=== PATIENT | male | born 1955 | race Caucasian/White ===

== ENCOUNTER → 2021-08-31 09:27 | Outpatient (CLI) | payer OTHER, SELFPAY ==
[2021-08-31 10:28] LABS: Appearance Urine UA CLEAR; Bilirubin Urine UA NEGATIVE (NEGATIVE); Color Urine UA YELLOW; Glucose Urine UA NEGATIVE (Negative); Ketones Urine UA NEGATIVE (NEGATIVE); Leukocyte Esterase Urine UA NEGATIVE (NEGATIVE); Nitrite Urine UA NEGATIVE (Negative); Occult Blood Urine UA NEGATIVE (Negative); Protein Urine UA NEGATIVE (Negative); Specific Gravity Urine UA <=1.005 (1.000-1.035); Urobilinogen Urine UA 0.2 E.U./dL (0.2)
[2021-08-31 10:38] LABS: RBC Urine 0-1/HPF (0-5/HPF); WBC Urine None Seen (0-5/HPF)
[2021-08-31 10:39] LABS: Bacteria Urine Occasional (0-1); Culture Indicated Urine Cult Not Indicated
[2021-08-31 11:29] LABS: Add Manual Diff / Slide Review NO; Basophils Absolute Auto 100 /uL (0-100); Basophils Percent Auto 0.5 % (0-2); Eosinophils Absolute Auto 200 /uL (0-450); Eosinophils Percent Auto 1.2 % (2-4); Hematocrit 43.3 % (41-53); Hemoglobin 14.8 g/dL (13.5-17.5); Lymphocytes Absolute Auto 2800 /uL (1100-4500); Lymphocytes Percent Auto 22.9 % (25-40); Mean Corpuscular HGB Conc 34.3 % (30-36); Mean Corpuscular Hemoglobin 33.1 PG (26-34); Mean Corpuscular Volume 96.6 fL (80-100); Monocytes Absolute Auto 1000 /uL (0-900); Neutrophils Absolute Auto 8200 /uL (1500-7000); Neutrophils Percent Auto 67.4 % (50-75); Platelet Count 195 X10^3/uL (150-400); Red Blood Cell Count 4.48 X10^6/uL (4.5-5.9); White Blood Cell Count 12.2 X10^3/uL (4.5-11.0)
[2021-08-31 11:45] LABS: BUN Creatinine Ratio 14.5 (6-22); Blood Urea Nitrogen 16 mg/dL (9-20); Calcium 9.7 mg/dL (8.4-10.2); Carbon Dioxide 28 mmol/L (22-32); Chloride 105 mmol/L (98-107); Estimated Glomerular Filt Rate > 60.0 mL/min (>60); Glucose 105 mg/dL (80-110); HEMOLYSIS < 15 (0-50); Potassium 4.7 mmol/L (3.4-5.1); Sodium 141 mmol/L (137-145)
[2021-08-31 11:46] LABS: Hemoglobin A1C% w Est Avg Glu 6.6 % (4.0-6.0)
== END ==
PROVIDERS: PCP Family Medicine; Referring Provider Orthopaedic Surgery; Visit Provider Orthopaedic Surgery
DX: Z01.818 Encounter for other preprocedural examination (principal); Z01.812 Encounter for preprocedural laboratory examination; N39.0 Urinary tract infection, site not specified; R73.9 Hyperglycemia, unspecified; Z20.822 Contact with and (suspected) exposure to COVID-19
CPT/HCPCS: 36415; 80048; 81001; 83036; 85025; 87635; 93005; C9803

== ENCOUNTER → 2021-08-31 09:27 | Outpatient (CLI) | payer OTHER, SELFPAY ==
[2021-08-31 10:45] LABS: COVID19 -Nasal RAPID Negative (Negative)
== END ==
PROVIDERS: PCP Family Medicine; Visit Provider Surgery
DX: Z01.812 Encounter for preprocedural laboratory examination (principal); Z20.822 Contact with and (suspected) exposure to COVID-19
CPT/HCPCS: 87635

== ENCOUNTER 2021-09-01 07:02 | Day surgery (SDC) | payer OTHER, SELFPAY ==
--- NOTE | 2021-09-01 | PATH_ITS ---
[facility] Accession Number: [id number] . 01 Material submitted: . PART A: stomach - ANTRUM BIOPSIES PART B: duodenum - DUODENAL BIOPSIES PART C: stomach - PROXIMAL STOMACH LESION . 02 Diagnosis: A. Stomach, Antrum, Biopsies: Antral mucosa with mild chronic gastritis. Negative for Helicobacter organisms by immunohistochemistry. Negative for intestinal metaplasia. Negative for dysplasia and malignancy. . B. Duodenum, Biopsies: Duodenal mucosa with no diagnostic abnormality. Negative for active inflammation, features of sprue, dysplasia, or malignancy. . C. Stomach, Proximal Lesion, Biopsies: Fragments suggestive of gastric hyperplastic polyp. Body-type mucosa with mild chronic gastritis. Negative for Helicobacter organisms by immunohistochemistry. Negative for intestinal metaplasia. Negative for dysplasia and malignancy. MRV 09/07/2021 1207 Local . 02 Electronically signed: . Jennifer Foster MD, Pathologist NPI- [id number] . 01 Gross description: . Part A: ANTRUM BIOPSIES: Received in formalin are 3 fragment(s) of son, soft tissue measuring 0.4 x 0.2 x 0.1 cm to 0.3 x 0.1 x 0.1 cm submitted entirely in 1 cassette(s) Part B: DUODENAL BIOPSIES: Received in formalin are 2 fragment(s) of son, soft tissue measuring 0.3 x 0.1 x 0.1 cm to 0.2 x 0.1 x 0.1 cm submitted entirely in 1 cassette(s) Part C: PROXIMAL STOMACH LESION: Received in formalin are 4 fragment(s) of son, soft tissue measuring 0.3 x 0.2 x 0.2 cm to 0.2 x 0.2 x 0.1 cm submitted entirely in 1 cassette(s) /CPE 09/02/2021 0527 Local . 02 Microscopic: . A, C. Immunohistochemical stains were performed on blocks A and C in order to evaluate for Helicobacter organisms and are both negative. The control stain showed appropriate reactivity. . * This test was developed and its performance characteristics determined by [facility]. It has not been cleared or approved by the U.S. Food and Drug Administration. The FDA has determined that such clearance or approval is not necessary. This test is used for clinical purposes. It should not be regarded as investigational or for research. . 02 Pathologist provided ICD-10: R10.9 . 02 CPT . 731710, 898117, 860389, [id number] Specimen Comment: A courtesy copy of this report has been sent to [phone] Performed at: 01 [facility] [address] [id number] MD Luis Monge MD Phone: [phone] Performed at: 02 [facility] [address] [place], [place] [id number] MD Jennifer Foster MD Phone: [phone]
[2021-09-01 07:35] VITALS: BP 132/74; PULSE 91; RESP 16; TEMP 36.4; O2SAT 98; BMI 25.7
[2021-09-01] MEDS: LACTATED RINGERS 1,000 ML 42 ML IV (07:44)
--- NOTE | 2021-09-01 08:29 | PM.HP.1 ---
History of Present Illness History of Present Illness Date Patient Seen: 09/01/21 Time Patient Seen: 08:29 Chief complaint: SDC Narrative: Mansoor is here for his EGD. Please see the office note from July 13, 2021 for details. Patient History Medical History Benign prostatic hyperplasia (~2014) CAD (coronary artery disease) Chicken pox Cholecystitis Chronic left hip pain COPD (chronic obstructive pulmonary disease) (~2017) Diabetes mellitus Osteoarthritis (~2014) Surgical History Anesthesia History of tonsillectomy (~1964) History of vasectomy (~1989) Family & Social History Family History Father History of heart disease Hyperlipidemia Hypertension Mother Mental health problem Brother History of heart disease Hyperlipidemia Hypertension Social History: household members spouse Tobacco & Substance use: Smoking Status Current every day smoker alcohol intake current Substance Use Type does not use Meds Home Medications and Allergies Home Medications Medication Instructions Recorded Confirmed Type omeprazole 40 mg capsule,delayed 40 mg PO DAILY #90 cap 07/15/21 09/01/21 Rx release semaglutide 1 mg/dose (2 mg/1.5 1 mg (0.75 mL) SUBCUT QWEEK #3 ml 07/15/21 09/01/21 Rx mL) subcutaneous pen injector simvastatin 10 mg tablet 10 mg PO DAILY #90 tab 07/15/21 09/01/21 Rx tamsulosin 0.4 mg capsule 0.8 mg PO DAILY #180 cap 07/15/21 09/01/21 Rx Allergies Allergy/AdvReac Type Severity Reaction Status Date / Time azithromycin Allergy Intermediate GI issues Verified 07/15/21 15:40 erythromycin base Allergy Intermediate GI issues Verified 07/15/21 15:40 Penicillins Allergy Mild unknown Verified 07/15/21 15:40 Exam Vital Signs (past 8 hours): - 09/01/21 07:35 Temperature 97.5 F L Pulse Rate 91 H Respiratory Rate 16 Blood Pressure 132/74 Pulse Oximetry 98 Oxygen Delivery Method Room Air Const General: healthy appearing Resp Effort & Inspection: normal respiratory effort GI Palpation: soft Assessment & Plan Assessment and plan (1) Dyspepsia: Status: Acute Plan Mansoor is here for his EGD. We reviewed the procedure and the risks and he would like to proceed. COVID-19 COVID-19 status: Negative Result date/Date tested (Pos, Neg/Pending): 08/31/21 Time Spent With Patient Critical Care time: I spent a total of [] minutes of critical care time on this patient's care today; this time is exclusive of procedural time.
[2021-09-01] MEDS: LIDOCAINE 4% SOLN 50 ML 20 ML TOP (08:33)
[2021-09-01] MEDS: MIDAZOLAM 5 MG/5 ML VIAL IV (08:34)
--- NOTE | 2021-09-01 08:50 | PM.OP.EGD ---
Operative Date/Time/Diagnoses Date of procedure: 09/01/21 Time of procedure: 08:51 Pre-op diagnosis: Dyspepsia Post-op diagnosis: same Procedure & Clinicians Study performed: Esophagogastroduodenoscopy Surgeon: Juan Green Procedure Notes Procedure in detail: A timeout was performed. A bite blocked was placed. The patient was positioned in the left lateral decubitus position. The endoscope was inserted through the bite block and passed through the esophagus and stomach and into the duodenum. The duodenal mucosa appeared normal. Random biopsies were taken with cold forceps from the duodenum. The scope was withdrawn into the duodenal bulb and no abnormality was noted. The scope was withdrawn into the stomach. There is mild antritis and random biopsies were taken from the antrum using cold forceps. The rest of the stomach was normal. The scope was retroflexed and small polypoid lesion was noted in the proximal stomach just distal to the GE junction, possibly a fundic gland polyp. This was removed with cold forceps biopsies. The scope was withdrawn into the esophagus and no abnormalities were noted. The remainder of the esophagus was normal. The scope was withdrawn. The patient was awakened and brought to recovery. Sedation minutes: 15 Post-procedure Recommendations: Will call with biopsy results Disposition: PACU
[2021-09-01] MEDS: fentaNYL 250 MCG/5 ML INJ IV (08:51)
[2021-09-01 08:58] VITALS: BP 104/65; PULSE 71; RESP 15; TEMP 36; O2SAT 97
[2021-09-01 09:15] VITALS: BP 99/60; PULSE 73; RESP 15; O2SAT 97
[2021-09-01 09:17] VITALS: BP 99/60; PULSE 69; RESP 15; O2SAT 97
--- NOTE | 2021-09-01 09:19 | SUR.PHASEII ---
Discharge instructions reviewed with pt and he verbalized understanding.
== END 2021-09-01 10:00 | disposition home or self-care (01) ==
PROVIDERS: PCP Family Medicine; Referring Provider Surgery; Visit Provider Surgery
PROC: 0DJ08ZZ Inspection of Upper Intestinal Tract, Via Natural or Artificial Opening Endoscopic (ICD-10-PCS; CPT 43235; principal; 2021-09-01 08:15)
DX: R10.13 Epigastric pain (principal); J44.9 Chronic obstructive pulmonary disease, unspecified; E11.9 Type 2 diabetes mellitus without complications; Z79.84 Long term (current) use of oral hypoglycemic drugs; F17.210 Nicotine dependence, cigarettes, uncomplicated; K29.50 Unspecified chronic gastritis without bleeding; K31.7 Polyp of stomach and duodenum
CPT/HCPCS: 43239; 99152; J2250; J3010

== ENCOUNTER → 2021-10-05 13:59 | Outpatient (CLI) | payer OTHER, SELFPAY ==
[2021-10-05 15:43] LABS: COVID19 -Nasal RAPID Negative (Negative)
== END ==
PROVIDERS: PCP Family Medicine; Visit Provider Family Medicine Sleep Medicine
DX: Z20.822 Contact with and (suspected) exposure to COVID-19 (principal)
CPT/HCPCS: 87635; C9803

== ENCOUNTER → 2021-10-06 07:37 | Outpatient (CLI) | payer OTHER, SELFPAY ==
--- NOTE | 2021-10-06 | DI.NM.S_ITS ---
PROCEDURE: NM CONCHIS PERF SPECT REST & STR Rest and exercise myocardial perfusion SPECT with gated imaging and ejection fraction RADIOPHARMACEUTICAL: 10.3 mCi Tc-99m sestamibi IV at rest and 25.4 mCi Tc-99m sestamibi IV at peak exercise. A one day-protocol was performed. INDICATIONS: Atherosclerotic heart disease TECHNIQUE: Radiopharmaceutical was injected at peak stress test, and also at rest. SPECT images were obtained. SPECT myocardial perfusion images were displayed in short axis, horizontal long axis, and vertical long axis views. Gated images were reviewed using Biocartis software. COMPARISON: None. CARDIAC STRESS: A standard Jordi treadmill exercise tolerance test was performed by the patient under the supervision of an attending staff. The patient exercised for 6 minutes and 30 seconds; functional aerobic impairment (PROSPER) is -6%. Hemodynamic data: There is normal blood pressure and heart rate response to exercise stress. Patient achieved 76% of maximum predicted heart rate at peak exercise. Symptoms: Patient denied chest pain during exercise. EKG: No diagnostic EKG changes of ischemia; no ectopy. FINDINGS: Raw data: There is good myocardial labeling by radiotracer. No significant motion artifacts. Jewz-at-ztpwi ratio is 0.26 (normal is less than 0.38 for sestamibi tracer, and less than 0.50 for thallium tracer). Left ventricle function: Gated images demonstrate normal left ventricle wall thickening. No segmental wall motion abnormality. No transient ischemic dilation; TID is 0.94 (normal less than 1.3). The left ventricle resting end-diastolic volume is 104 mL. Left ventricle stress ejection fraction is 76%; normal values are above 45%. Myocardial perfusion: No defect on stress prone images. IMPRESSION: Low risk, normal treadmill nuclear stress test 1) No perfusion evidence of ischemia or infarction. 2) Normal left ventricular size, wall motion, and systolic function (EF post stress 76%). 3) No ECG evidence of ischemia or infarction. 4) No angina during the study. 5) Average exercise capacity (9.1 METs, PROSPER -6%). Target heart rate achieved. Appropriate BP response to exercise. 6) No prior nuclear stress test available for comparison. Dictated by: Kiko Garnett MD on 10/06/2021 at 16:25 Approved by: Kiko Garnett MD on 10/06/2021 at 16:28
--- NOTE | 2021-10-06 11:49 | PM.TREADMILL ---
Cardiac Stress Test Report Referral & Results Date Patient Seen: 10/06/21 Time Patient Seen: 11:50 Requesting provider: Kiko Garnett Indication: Atherosclerotic heart disease Rest ECG: Sinus rhythm Procedure Note: Standard Jordi protocol, 8:19 mins, 9.1 METS Good exercise capacity, PROSPER -6% Normal hemodynamic response to exercise; hypertensive at baseline No chest pain or anginal symptoms No significant ST changes at peak exercise No ectopy Test stopped due to right leg pain Impression: Normal exercise stress test Nuclear images pending Please note: Actual ECG tracings can be found in the PACS system.
== END ==
PROVIDERS: PCP Family Medicine; Referring Provider Internal Medicine Cardiovascular Disease; Visit Provider Internal Medicine Cardiovascular Disease
DX: I25.10 Atherosclerotic heart disease of native coronary artery without angina pectoris (principal)
CPT/HCPCS: 78452; 93017; A9502

== ENCOUNTER → 2021-10-10 13:14 | Outpatient (CLI) | payer OTHER, SELFPAY ==
[2021-10-10 17:16] LABS: COVID19 -Nasal RAPID Negative (Negative)
== END ==
PROVIDERS: PCP Family Medicine; Visit Provider Family Medicine Sleep Medicine
DX: Z20.822 Contact with and (suspected) exposure to COVID-19 (principal)
CPT/HCPCS: 87635; C9803

== ENCOUNTER 2021-10-11 06:04 | Day surgery (SDC) | payer OTHER, SELFPAY ==
[2021-10-03 14:50] VITALS: BMI 26.2
[2021-10-11] VITALS (15 sets, daily range): BP systolic 82–131; BP diastolic 36–75; PULSE 72–87; RESP 14–20; TEMP 36.3–37.4; O2SAT 90–99; BMI 26.2
--- NOTE | 2021-10-11 06:34 | DI.RAD.S_ITS ---
PROCEDURE: XR HIP W PEL IF DONE LT 2V INDICATIONS: prosthesis placement TECHNIQUE: 4 intraoperative spot view(s) of the hip acquired. COMPARISON: None. FINDINGS: Multiple intraoperative images demonstrate placement of a left hip arthroplasty device. IMPRESSION: Intraoperative imaging obtained during left hip arthroplasty procedure. Dictated by: Ale Swann M.D. on 10/11/2021 at 11:19 Approved by: Ale Swann M.D. on 10/11/2021 at 11:20
[2021-10-11] MEDS: LACTATED RINGERS 1,000 ML 42 ML IV ×2 (07:03→09:22)
[2021-10-11] MEDS: VANCOMYCIN 1,000 MG/200 ML PIGGYBACK 200 MG IV (07:10)
[2021-10-11] MEDS: ACETAMINOPHEN 325 MG TABLET 975 MG PO (07:17)
[2021-10-11] MEDS: CELECOXIB 200 MG CAPSULE PO (07:18)
[2021-10-11] MEDS: PREGABALIN 75 MG CAPSULE PO (07:19)
--- NOTE | 2021-10-11 07:38 | PM.PREOP ---
Pre-operative Note COVID-19 COVID-19 status: Negative Interval Note History & Physical reviewed/Exam performed by Physician: Yes Changes to H&P: No
--- NOTE | 2021-10-11 07:39 | PM.OP.1 ---
Operative Date/Time/Diagnoses Date of procedure: 10/11/21 Time of procedure: 08:00 Pre-op diagnosis: left hip OA Post-op diagnosis: same Procedure & Clinicians Procedure: Left total hip arthroplasty anterior approach Same procedure as scheduled: Yes Indications: The patient has had progressively worsening left hip pain with radiographic changes consistent with arthritis. Non-operative management has failed and the patient has requested total hip replacement. The risks, benefits and alternatives to surgery were discussed with the patient prior to proceeding. Risks discussed included, but were not limited to, failure to relieve pain, leg length discrepancy, dislocation, stiffness, infection, nerve damage, deep venous thrombosis, pulmonary embolism, stroke, coma, heart attack, permanent paralysis and , as well as the potential need for eventual revision of the prosthetic. Surgeon: Ryann Ceja Vp Cardiovascular Service Line: Tram Knight Anesthesia Type: General and Spinal Operative Notes Findings: Severe left hip osteoarthritis, adequate stability, good bone Closure Type: primary Specimen(s): none sent Prosthetic devices, grafts, tissues, transplants, or devices: Ceja [employer] Nephew R3 56 cup, anthology standard offset, size 12, Oxinium +4, neutral poly liner, one 6.5mm screw Estimated Blood Loss (mL): 250 Blood products transfused: none Procedure in detail: The patient was brought to the operating room. Patient was carefully positioned in the supine position. Time-out was performed and antibiotics were given. Anesthesia was induced. He was positioned in the on the table in order to allow hyperextension of the hip. The left lower extremity was prepped and draped in a standard sterile fashion. An anterior left hip incision was made 1 fingerbreadth lateral to the anterior superior iliac spine and extended distally towards the greater trochanter. Dissection was carried out through skin and subcutaneous tissues. Superficial hemostasis was achieved. The fascia over the tensor fascia destin was defined and incised with a knife. Two Allis clamps were used to grasp the fascia. Tensor fascia destin was retracted laterally. A gelpi retractor was placed. Dissection was carried out down along the neck. The circumflex vessels were carefully identified and cauterized with the Aqua Mantis. There was good visualization of the femoral neck. A Cobra was placed superior to the neck and the gluteus fibers were carefully stripped from that superior aspect of the capsule. A 2nd retractor was placed along the inferior aspect of the neck. The rectus insertion along the capsule was partially released. A 3rd retractor that was then gently placed over the rim of the acetabulum under the rectus. Capsule was carefully incised and released from the intertrochanteric line circumferentially superior to the mid sagittal line and inferiorly to the mid sagittal line until the lesser trochanter was palpable. A tag stitch was placed both in the superior and inferior limb of the capsular insertion. Along the acetabulum capsule was also released up to the mid sagittal 12:00 position. A portion of the labrum was resected. A saw was used to perform an osteotomy at the level of the intertrochanteric line and the junction of the superior femoral neck leaving approximately 1 finger breath of residual inferior neck above the lesser trochanter. A 2nd cut was made along the femoral neck at the base of the head and a napkin ring of neck was removed. Corkscrew was placed in the femoral head and the head was removed without difficulty. Retractors were then repositioned around the acetabulum. Residual labrum was resected and additional osteophytes were removed. A reamer that was 4 mm below the templated size was placed by hand in the acetabulum and it was reamed to centralize the acetabulum. It was then reamed up to 2 under the templated size and fluoroscopy was brought in to confirm the position of the reaming and depth of reaming. I reamed 1 under the anticipated size. A trial cup was placed and noted that it was appropriately sized and fluoroscopy confirmed position and depth. The component was open and inserted without difficulty fluoroscopic imaging was used to confirm that the cup had been adequately seated and was well positioned. It was further stabilized with a single screw. Neutral poly liner was placed. The cup was tested and noted to be stable. Attention was then directed to the femur. The femur was gently hyperextended additional capsular release was performed as needed in order to allow adequate visualization of the proximal femur with elevation of the femur. Patient was placed in a hyperextended slightly adducted position with maximum external rotation. Box osteotome was used to check for any residual neck as well as sclerotic bone along the trochanter. [place] pepper was placed in the femur. Additional broaching was performed. Canal finder was used to determine the alignment of the canal and position. Size 1 broach was placed. The canal was then appropriately broached up to the templated size as long as there was adequate stability of the broach and serial advancement of the broach without excessive impingement. Specific attention was directed at avoiding varus attempting to direct the distal aspect of the broach more anteriorly and avoiding excessive anteversion. Trial reduction showed acceptable range of motion, good stability, no posterior impingement, jew of leg length and appropriate lateral shuck. I also hyperflexed the hip and checked that there was no impingement anteriorly and there was good stability with flexion, adduction and internal rotation. Marcaine and Exparel were injected. The stem was placed without difficulty. Repeat trial reduction and x-ray showed acceptable overall position, length, and no evidence of the femoral fracture. Final head was placed. Wound was meticulously irrigated with normal saline. The hip was reduced and additional Exparel and Marcaine were injected. The capsule was closed with interrupted nonabsorbable sutures. The fascia of the tensor was closed with interrupted and running Vicryl. No drain was placed. Any tensor fascia destin muscle that appeared to be contused or injured which was a minimal amount was carefully resected. Capsule around the tensor was injected with Exparel and Marcaine. The skin was closed with barbed stitches for the subcutaneous tissue and skin. We also used surgical glue. The wound was dressed sterilely. Brief Betadine soak was also used and was meticulously irrigated with normal saline. Patient was transferred to recovery room in satisfactory condition. Complications: none Post-operative Condition: stable Disposition: Acute Care Plan for aftercare: The patient will be maintained on a standard total hip replacement protocol with weight bearing as tolerated and anterior hip precautions. The patient will receive Aspirin and sequential compression devices for DVT prophylaxis. The patient will be discharged home when safe for the home environment.
[2021-10-11] MEDS: CEFAZOLIN 2 GM/20 ML SYRINGE IV ×2 (08:05→15:14)
[2021-10-11] MEDS: TRANEXAMIC ACID 1,000 MG VIAL 1000 MG INJ ×2 (08:10→10:10)
--- NOTE | 2021-10-11 08:35 | SUR.OPER ---
Supine on padded [place] table with bilateral legs secured in padded positioning boots, feet and ankles wrapped in cast padding and coban and suspended in positioning spars, operative leg in traction per surgeon. Head on one pillow. Arm on non-operative side secured on padded armboard <90 degrees abduction. Arm on operative side padded with gel pad and resting across chest then secured with tape over sheet. Padded perineal post in place per surgeon.
[2021-10-11] MEDS: BUPIVACAINE 0.25% (PF) 60 ML, EPINEPHrine 0.3 MG INJ (09:04)
[2021-10-11] MEDS: SODIUM CHLORIDE IRRIG SOLUTION 250 ML, POVIDONE-IODINE SPONGE STICKS 1 APPLIC IRR (09:07)
[2021-10-11] MEDS: BUPIVACAINE LIPOSOME 266 MG/20 ML VIAL INJ (10:20)
[2021-10-11] MEDS: EPINEPHrine 1 MG/10 ML SYRINGE INJ (10:24)
--- NOTE | 2021-10-11 10:32 | DI.RAD.S_ITS ---
PROCEDURE: XR HIP W PEL IF DONE LT 2V INDICATIONS: S TECHNIQUE: AP pelvis and lateral view of the left hip acquired. COMPARISON: [facility], [facility], XR HIP W PEL IF DONE LT 2V, 10/11/2021, 9:29. FINDINGS: Bones: Patient is status post left hip arthroplasty, with hardware components in expected positions. The hip joint appears congruent. The visualized bony structures appear intact. Soft tissues: Overlying postoperative changes are noted. No suspicious soft tissue densities. IMPRESSION: Expected appearance of left hip arthroplasty. Dictated by: Ale Swann M.D. on 10/11/2021 at 12:05 Approved by: Ale Swann M.D. on 10/11/2021 at 12:06
--- NOTE | 2021-10-11 11:06 | SUR.PHASEI ---
Patient in PACU, SPO2 91% on 4L Nasal Cannula, switched to simple mask 13 L
[2021-10-11] MEDS: IBUPROFEN 400 MG TABLET PO ×3 (12:37→22:40)
[2021-10-11] MEDS: LACTATED RINGERS 1,000 ML 125 ML IV ×2 (12:38→22:03)
--- NOTE | 2021-10-11 13:38 | PT.IIE ---
Current Diagnoses Unilateral primary osteoarthritis, left hip (10/11/21) Surgery Performed Operation Date: 10/11/21 07:45 Actual Procedures p Total Hip Arthroplasty/Anterior Approach(Left) - Ryann Ceja MD Surgical History (Last Reviewed 07/13/21 @ 11:28 by Lenora Vásquez MA) Anesthesia Medical History (Last Updated 10/03/21 @ 14:51 by Martha Varner RN) Benign prostatic hyperplasia (~2014) CAD (coronary artery disease) Chicken pox Cholecystitis Chronic left hip pain COPD (chronic obstructive pulmonary disease) (~2017) Diabetes mellitus Osteoarthritis (~2014) Unilateral primary osteoarthritis, left hip Physical Therapy Inpatient Evaluation/Re-Eval M1 PT/OT-IP Prior Functional Status Start: 10/11/21 14:21 Freq: NEEDED Status: Active Protocol: Document 10/11/21 13:38 AB (Rec: 10/11/21 14:32 AB [id number]) Medical Review Prior Functional Status Medical History Reviewed Yes Communication able to make needs known Mobility and Gait pt stated that he is independent with all mobilities and ambulation without AD Social History Household Members spouse Living Arrangements House Number of Floors (Floors) Two Floors Number of Stairs To Enter/Railing? 5 steps wide rails to enter the house 14 steps L rail ascending to get to bedroom level Home Environment High Toilet,Tub/Shower Home Equipment Front Wheel Walker,Grab Bars In Shower Additional Social History Comment pt works for [employer] M2 PT-IP Current Condition Start: 10/11/21 14:21 Freq: NEEDED Status: Active Protocol: Document 10/11/21 13:38 AB (Rec: 10/11/21 14:32 AB [id number]) Physical Therapy Current Condition Current Condition Evaluation Date 10/11/21 Treatment Diagnosis L MOLLY anterior approach; difficulty in walking Onset Date 10/11/21 M3 PT-IP Subjective Start: 10/11/21 14:21 Freq: NEEDED Status: Active Protocol: Document 10/11/21 13:38 AB (Rec: 10/11/21 14:32 AB [id number]) Subjective Physical Therapy Visit Type Type Initial Evaluation Visit Start Time 13:38 Visit Stop Time 14:10 Total Visit Minutes 32 Number of ELECTRIC DETECTOR OPERATOR Visits 0 Physical Therapy Visit Comments Patient Comments pt wanting to go home today Therapy Pain Assessment Pain Present Pain Present Denied Pain M4 PT-IP Mobility and Gait Start: 10/11/21 14:21 Freq: NEEDED Status: Active Protocol: Document 10/11/21 13:38 AB (Rec: 10/11/21 14:32 AB [id number]) PT-Bed Mobility Assessment Supine to Sit Supine to Sit Standby Assistance Sit to Supine Sit to Supine Minimal Assistance PT-Transfer Assessment Sit to and From Stand Sit to and from Stand Maximum Assistance,1 Person Assistance,Use of Upper Extremities Equipment Transfer Assistive Device Gait Belt,Front Wheeled Walker Orthotic/Prosthetic Devices or Brace: No Comments Mobility Comments bp 119/58. spouse in room. educated pt and spouse regarding pt's hip precautions . pt stated that he can feel his BLE but buttocks/groin are still numb. able to do AROM on BLE. completed supine to sit SBA. able to sit on EOB. pt then stated that L quads are still numb. pt stated that he might need to use the toilet. nurse in room to assist. pt completed sit to stand max A and cues. max A for standing balance using FWW . nurse assisted pt with use of urinal while PT assisted pt with standing balance. pt does not have much LLE motor control with (+) buckling requiring assist and cues for quads activation. instructed pt to sit back down. pt completed sit to supine min A with LE elevation to bed. positioned pt in bed. call light and table placed within reach. caregiver training set up with spouse for tomorrow at 930 am . PT-Balance Assessment Sitting Balance and Reactions Static Sitting Balance Ability Good Dynamic Sitting Balance Ability Good Standing Balance and Reactions Static Standing Balance Ability Poor Dynamic Standing Balance Ability Poor Device Used FWW M5 PT-IP Objective Assessments Start: 10/11/21 14:21 Freq: NEEDED Status: Active Protocol: Document 10/11/21 13:38 AB (Rec: 10/11/21 14:32 AB [id number]) Orientation Orientation/Cognition Level of Alertness Alert Orientation Name,Age,Birthday,Month,Date, Year,Day of Week,Place, Situation Language Function Ability No Deficits Noted Safety Awareness Understands Safety Issues Memory Description No Deficits Noted Gross Range of Motion Lower Extremity ROM Assessment Within Functional Limits Strength Lower Extremity Strength Assessment Left Impaired Hip 4-/5 Knee 4-/5 Sensation Assessment Sensation Gross Sensation Left LE Impaired Light Touch Impaired Proprioception (Position) Impaired Sensation Description Numbness M6 PT-IP Treatment Start: 10/11/21 14:21 Freq: NEEDED Status: Active Protocol: Document 10/11/21 13:38 AB (Rec: 10/11/21 14:32 AB [id number]) Physical Therapy Treatment Education Education Provided Precautions,Weight Bearing Status,Post-Op Packet,Safety M7 PT-IP Assessment and Plan Start: 10/11/21 14:21 Freq: NEEDED Status: Active Protocol: Document 10/11/21 13:38 AB (Rec: 10/11/21 14:32 AB [email or web address]) PT Summary Assessment and Plan Potential Rehabilitation Potential Fair Status of Condition at Evaluation Evolving Summary Impairments Pain,ROM,Strength,Balance, Coordination,Sensation,Tone, Cognition,Bed Mobility, Transfers,Gait,Activity Tolerance Assessment Summary pt s/p L MOLLY anterior approach and just had surgery this morning. pt initially stated that he can feel BLE but upon moving, stated that he still has L quads numbness. pt requiring max A with sit to stand and still does not have much control on LLE. will continue to assess. caregiver training set up for tomorrow at 930 am. Goals Bed Mobility Goal Standby Assistance Transfer Goal Standby Assistance,Front Wheeled Walker Gait Goal Standby Assistance,Front Wheel Walker Gait Distance 200 Other Goals up/down 14 steps L rail ascending SBA Days to Meet Goals 5 Frequency of Treatment Frequency Of Treatment Twice a Day Treatment Plan Physical Therapy Treatment Plan Bed Mobility Training,Transfer Training,Gait Training, Therapeutic Exercise,Balance Retraining,Post Op Education, Discharge Planning,Hot or Cold Pack,Neuromuscular Re-ed, Coordination Retraining,Manual Therapy Precautions Anterior Hip Precautions No Hip Extension,No Hip External Rotation Weight Bearing Status Weight Bearing Status Weight Bear as Tolerated Allowed Weight Bearing Amount (enter % LLE WBAT or #) (%) Recommendations To Nursing Amount of Assist Needed PT/OT Assist Only Discharge Recommendations PT Discharge Recommendations Home with Assistance, Outpatient PT Transportation Needs at Discharge Private Vehicle
[2021-10-11] MEDS: IPRATROPIUM 0.5 MG/2.5 ML NEB INH ×2 (14:12→21:31)
[2021-10-11] MEDS: ACETAMINOPHEN 325 MG TABLET 650 MG PO ×2 (15:14→22:41)
[2021-10-11] MEDS: ATORVASTATIN 20 MG TABLET 10 MG PO (22:39)
[2021-10-11] MEDS: ASPIRIN EC 81 MG TABLET PO (22:41)
[2021-10-11] MEDS: DOCUSATE 100 MG CAPSULE PO (22:41)
[2021-10-12] MEDS: IBUPROFEN 400 MG TABLET PO ×3 (01:10→08:47)
[2021-10-12] MEDS: CEFAZOLIN 2 GM/20 ML SYRINGE IV (01:10)
[2021-10-12 04:02] VITALS: BP 116/46; PULSE 74; RESP 18; TEMP 36.6; O2SAT 96
[2021-10-12 04:54] LABS: Hematocrit 35.3 % (41-53)
[2021-10-12] MEDS: PANTOPRAZOLE DR 40 MG TABLET PO (06:06)
[2021-10-12 07:48] VITALS: BP 101/53; PULSE 72; RESP 16; TEMP 36.6; O2SAT 94
--- NOTE | 2021-10-12 08:21 | P.DS_ITS ---
History of Present Illness History of Present Illness Date Patient Seen: 10/12/21 Time Patient Seen: 08:22 Chief complaint: OPB Narrative: Operative Date/Time/Diagnoses Date of procedure: 10/11/21 Time of procedure: 08:00 Pre-op diagnosis: left hip OA Post-op diagnosis: same Procedure & Clinicians Procedure: Left total hip arthroplasty anterior approach Same procedure as scheduled: Yes Indications: The patient has had progressively worsening left hip pain with radiographic changes consistent with arthritis. Non-operative management has failed and the patient has requested total hip replacement. The risks, benefits and alternatives to surgery were discussed with the patient prior to proceeding. Risks discussed included, but were not limited to, failure to relieve pain, leg length discrepancy, dislocation, stiffness, infection, nerve damage, deep venous thrombosis, pulmonary embolism, stroke, coma, heart attack, permanent paralysis and , as well as the potential need for eventual revision of the prosthetic. Surgeon: Ryann Ceja Computing Machine Operator: Tram Knight Anesthesia Type: General and Spinal Operative Notes Findings: Severe left hip osteoarthritis, adequate stability, good bone Closure Type: primary Specimen(s): none sent Prosthetic devices, grafts, tissues, transplants, or devices: Ceja and Nephew R3 56 cup, anthology standard offset, size 12, Oxinium +4, neutral poly liner, one 6.5mm screw Estimated Blood Loss (mL): 250 Blood products transfused: none Discharge Providers Provider Discharge Date: 10/12/21 Primary care physician: Mango Richard DO Consults: 10/03/21 15:27 Consult to Respiratory Therapy Evaluate & Treat Comment: Physician Instructions: Evaluate and treat 10/11/21 06:34 Consult to Anesthesiology Routine Comment: Consulting Provider: Anesthesiologist Reason for consultation: Regional block for post operative pain control 10/11/21 07:35 Consult to Respiratory Therapy Evaluate & Treat Comment: Physician Instructions: Evaluate and treat 10/11/21 11:43 Consult to Discharge Planning Routine Comment: Consult to Physical Therapy Evaluate & Treat Comment: Physician Instructions: post op MOLLY protocol Consult to Respiratory Therapy Evaluate & Treat Comment: Physician Instructions: Evaluate and treat Discharge provider: Tram Knight PA-C Summary Hospital Course Discharge Diagnosis: 1) s/p LEFT total hip arthroplasty, anterior approach 2) Acute anemia d/t expected surgical blood loss Hospital Course: Mr Contreras's hospital course was unremarkable. On POD# 1, he was feeling well and wanted to go home. He was eating and voiding without difficulty. He was evaluated by PT. His pain was well controlled on oral, non-narcotic medications. Exam Vital Signs (past 8 hours): - 10/12/21 04:02 Temperature 97.8 F Pulse Rate 74 Respiratory Rate 18 Blood Pressure 116/46 L Pulse Oximetry 96 Oxygen Delivery Method Room Air Oxygen Flow Rate 0 Narrative Exam Narrative: 5/5 strength in hip flexors, quadriceps, hamstrings, DF, PF, EHL bilaterally. Sensation to light touch intact throughout BLE. Calves soft, compressible, nontender and without palpable cords or masses. Left groin Aquacel dressing CDI . Objective Labs Result Diagrams: 10/12/21 04:18 Labs: Laboratory Results - last 24 hr 10/12/21 04:18 Hgb 12.0 L Hct 35.3 L PFSH Medical History (Updated 10/03/21 @ 14:51 by Martha Varner RN) Benign prostatic hyperplasia (~2014) CAD (coronary artery disease) Chicken pox Cholecystitis Chronic left hip pain COPD (chronic obstructive pulmonary disease) (~2017) Diabetes mellitus Osteoarthritis (~2014) Unilateral primary osteoarthritis, left hip Surgical History (Updated 10/12/21 @ 08:28 by Tram Knight PA-C) Anesthesia History of tonsillectomy (~1964) History of vasectomy (~1989) Family History Father History of heart disease Hyperlipidemia Hypertension Mother Mental health problem Brother History of heart disease Hyperlipidemia Hypertension Social History household members: spouse Smoking Status: Current every day smoker alcohol intake: current substance use type: does not use Discharge Assessment & Plan Assessment and Plan Assessment: 1) s/p LEFT total hip arthroplasty, anterior approach 2) Acute anemia d/t expected surgical blood loss Plan of Treatment: Discharge home, multimodal pain control, ASA 81 mg BID for VTE prophylaxis, outpt PT. Discharge Plan Discharge Plan Patient Disposition: Home Discharge orders & Medications Discharge Orders: Discharge (Order); Ordered 10/12/21 Ordered By: Tram Knight Prescriptions: New aspirin 81 mg Tablet,Delayed Release (Dr/Ec) 81 mg PO BID Qty: 90 0RF docusate sodium 100 mg Capsule 100 mg PO BID PRN (Reason: constipation) Qty: 60 2RF ibuprofen 400 mg Tablet 400 mg PO Q4HR Qty: 120 1RF acetaminophen 325 mg Tablet 650 mg PO TID Qty: 120 1RF oxycodone 5 mg Tablet 5 mg PO Q6H PRN (Reason: pain, severe) Qty: 40 0RF Continued Spiriva Respimat 1.25 mcg/actuation mist 2 puff inhalation DAILY Qty: 4 12RF omeprazole 40 mg capsule,delayed release(DR/EC) 40 mg PO DAILY Qty: 90 1RF tamsulosin 0.4 mg capsule 0.8 mg PO DAILY Qty: 180 0RF simvastatin 10 mg tablet 10 mg PO DAILY Qty: 90 0RF semaglutide 1 mg/dose (2 mg/1.5 mL) pen injector 1 mg SUBCUT QWEEK Qty: 3 5RF Label Comments: Takes evenings at 6pm Follow up/Referrals: Ryann Ceja MD [Physician] - As previously scheduled (Follow up with Dr Ceja on 10/26/2021 @ 11:00 am at [facility]) Mango Richard DO [Primary Care Provider] - Diet/Activity/Treatments Diet: Diet as Tolerated Activity: Walk frequently! Cold/Heat Therapy: Ice to hip as needed for pain. Skin/Wound/Dressing Care Report to your healthcare provider any signs of infection, such as:: chills, fever, night sweats, unusual drainage and unusual redness Dressing: Leave Aquacel dressing in place until follow up visit in office. No bathing or otherwise soaking incision. Call the office if dressing becomes saturated inside. Visit Report/Discharge Packet Instructions: DI for Hip Replacement Stand Alone Forms: Surgery Discharge Discharge Data Primary Care Provider: Mango Richard Attending Provider: Ryann Ceja Quality VTE Deep Vein Thrombosis/Pulmonary Embolism Present on Admission: No
[2021-10-12] MEDS: ACETAMINOPHEN 325 MG TABLET 650 MG PO (08:44)
[2021-10-12] MEDS: ASPIRIN EC 81 MG TABLET PO (08:46)
[2021-10-12] MEDS: DOCUSATE 100 MG CAPSULE PO (08:47)
--- NOTE | 2021-10-12 09:55 | PT.IPTN ---
Current Diagnoses Unilateral primary osteoarthritis, left hip (10/11/21) Presence of unspecified artificial hip joint (10/11/21) Surgery Performed Operation Date: 10/11/21 07:45 Actual Procedures p Total Hip Arthroplasty/Anterior Approach(Left) - Ryann Ceja MD Physical Therapy Treatment Note M2 PT-IP Current Condition Start: 10/11/21 14:21 Freq: NEEDED Status: Discharge Protocol: Document 10/12/21 09:25 SP (Rec: 10/12/21 16:37 SP [id number]) Physical Therapy Current Condition Current Condition Evaluation Date 10/11/21 Treatment Diagnosis L MOLLY anterior approach; difficulty in walking Onset Date 10/11/21 M3 PT-IP Subjective Start: 10/11/21 14:21 Freq: NEEDED Status: Discharge Protocol: Document 10/12/21 09:25 SP (Rec: 10/12/21 16:37 SP [id number]) Subjective Physical Therapy Visit Type Type Treatment Note Visit Start Time 09:25 Visit Stop Time 09:55 Total Visit Minutes 30 Notes completed caregiver training including donpatricia GB and provided all assist required throughout tx. Vitals taken during tx: seated EOB: BP 97/52 HR 77 SaO2 97% on RA stand: 103/50 HR 87 post mobility: 105/ 51 HR 82 Number of SECURITIES UNDERWRITER Visits 1 Physical Therapy Visit Comments Patient Comments pt wanting to go home today Patient Goals Return home with to assist him. Therapy Pain Assessment Pain When Pain Assessed During Mobility Pain Present Pain Present Pain Reported Location Left Hip Intensity 2 Scale Used 0/10 at rest, 1-2/10 with mobility spot inferior lateral L hip incision Description Aching,Spasm,Tightness,With Movement Pain Behaviors Facial Grimacing Pain Management Techniques Apply Cold,Distraction, Modification of Treatment,Re- positioning,Timing of Activity with Medications M4 PT-IP Mobility and Gait Start: 10/11/21 14:21 Freq: NEEDED Status: Discharge Protocol: Document 10/12/21 09:25 SP (Rec: 10/12/21 16:37 SP [id number]) PT-Bed Mobility Assessment Supine to Sit Supine to Sit Independent Scooting Scooting to Edge of Bed Independent PT-Transfer Assessment Sit to and From Stand Sit to and from Stand Standby Assistance,Use of Upper Extremities Equipment Transfer Assistive Device Gait Belt,Front Wheeled Walker Orthotic/Prosthetic Devices or Brace: No Transfers Transfer Destination Chair Transfer Technique pt ambulated using FWW Transfer Ability Level of Assist Standby Assistance,Use of Upper Extremities Comments Mobility Comments completed supine>sit Mod I. sit>stand SBA w/ FWW. Further distance gait into hallway to stairs, completed stairs and back to room SBA, occasional cues for knee flexion and heel toe. Good demonstration carry over precautions, stagger stepping. Gait Assessment Gait Gait Assistance Required: Standby Assistance Distance (Feet) 200 Able to Maintain Weight Bearing Status Yes During Gait Assistive Devices Assistive Device Gait Belt,Front Wheeled Walker Orthotic/Prosthetic Devices or Brace: No Gait Deviations General Gait Pattern Antalgic,Decreased Stride Length,Decreased Feet Clearance,Narrow Based Gait Factors Limiting Gait Function Factors Limiting Gait Function Decreased Activity Tolerance, Decreased Strength,Pain Comments Gait Comments Good stagger stepping, no hip extension on L and smaller steps during turns post education to maintain no ER. Stair Climbing Assessment Evaluation Level of Assist On Stairs Standby Assistance,Contact Guard Assistance Devices Stair Climbing Assistive Devices Left Railing,Right Railing Technique/Endurance Stair Climbing Direction Ascend and Descend Stair Climbing Technique Step to Step Number of Steps Climbed 3 Stair Climbing Set # Repetitions (reps) 6 Comments Stair Climbing Comments step to patterning BHR CGA initially then decrease close SBA by . Good verbalizing sequencing proper patterning, RLE ascend/ LLE descend leading step to. PT-Balance Assessment Sitting Balance and Reactions Static Sitting Balance Ability Normal Dynamic Sitting Balance Ability Normal Standing Balance and Reactions Static Standing Balance Ability Good Dynamic Standing Balance Ability Good Device Used FWW M5 PT-IP Objective Assessments Start: 10/11/21 14:21 Freq: NEEDED Status: Discharge Protocol: Document 10/11/21 13:38 AB (Rec: 10/11/21 14:32 AB [id number]) Orientation Orientation/Cognition Level of Alertness Alert Orientation Name,Age,Birthday,Month,Date, Year,Day of Week,Place, Situation Language Function Ability No Deficits Noted Safety Awareness Understands Safety Issues Memory Description No Deficits Noted Gross Range of Motion Lower Extremity ROM Assessment Within Functional Limits Strength Lower Extremity Strength Assessment Left Impaired Hip 4-/5 Knee 4-/5 Sensation Assessment Sensation Gross Sensation Left LE Impaired Light Touch Impaired Proprioception (Position) Impaired Sensation Description Numbness M6 PT-IP Treatment Start: 10/11/21 14:21 Freq: NEEDED Status: Discharge Protocol: Document 10/12/21 09:25 SP (Rec: 10/12/21 16:37 SP [id number]) Physical Therapy Treatment Exercises Exercises Ankle Pumps,Gluteal Sets,Quad Sets,Heel Slides,Seated Knee Flexion/Extension Knee ROM Measurement discussed not performed. Education Education Provided Precautions,Weight Bearing Status,Post-Op Packet,Safety M7 PT-IP Assessment and Plan Start: 10/11/21 14:21 Freq: NEEDED Status: Discharge Protocol: Document 10/12/21 09:25 SP (Rec: 10/12/21 16:37 SP [id number]) PT Summary Assessment and Plan Potential Rehabilitation Potential Fair Status of Condition at Evaluation Evolving Summary Impairments Pain,ROM,Strength,Balance, Coordination,Sensation,Tone, Cognition,Bed Mobility, Transfers,Gait,Activity Tolerance Progress Towards Goals Progressing Toward Goals,Slow Progress due to Pain,Slow Progress due to Activity Tolerance Assessment Summary Pt Mod I bed mob, SBA- Mod I during standing mobility with fWW. CGA>SBA stair mgt. Pt is ok to return home with to assist him when medically cleared. Is set up with outpt therapy. Goals Bed Mobility Goal Standby Assistance Transfer Goal Standby Assistance,Front Wheeled Walker Gait Goal Standby Assistance,Front Wheel Walker Gait Distance 200 Other Goals up/down 14 steps L rail ascending SBA Days to Meet Goals 5 Frequency of Treatment Frequency Of Treatment Twice a Day Treatment Plan Physical Therapy Treatment Plan Bed Mobility Training,Transfer Training,Gait Training, Therapeutic Exercise,Balance Retraining,Post Op Education, Discharge Planning,Hot or Cold Pack,Neuromuscular Re-ed, Coordination Retraining,Manual Therapy Other Recommendations and Next Treatment ROM, Post op ex, gait w/ FWW, Focus standing functional strengthening. Precautions Anterior Hip Precautions No Hip Extension,No Hip External Rotation Other Precautions Good recall and maintained precautions. Weight Bearing Status Weight Bearing Status Weight Bear as Tolerated Allowed Weight Bearing Amount (enter % LLE WBAT or #) (%) Recommendations To Nursing Amount of Assist Needed Independent,Standby Assistance Discharge Recommendations PT Discharge Recommendations Home with Assistance, Outpatient PT Transportation Needs at Discharge Private Vehicle
== END 2021-10-12 10:01 | disposition home or self-care (01) ==
LOC: OR 06:06 → AC 06:06
PROVIDERS: PCP Family Medicine; Referring Provider Orthopaedic Surgery; Visit Provider Orthopaedic Surgery
PROC: (CPT 27130; principal; 2021-10-11 07:45)
DX: M16.12 Unilateral primary osteoarthritis, left hip (principal); E11.9 Type 2 diabetes mellitus without complications; J44.9 Chronic obstructive pulmonary disease, unspecified; Z79.84 Long term (current) use of oral hypoglycemic drugs; F17.210 Nicotine dependence, cigarettes, uncomplicated
CPT/HCPCS: 27130; 36415; 73502; 76000; 82962; 85014; 85018; 94640; 97116; 97162; 97530; C1776; C9290; J0171; J0690; J1100; J2250; J2274; J2405; J2704; J3010

== ENCOUNTER → 2021-11-28 07:18 | Outpatient (CLI) | payer OTHER, SELFPAY ==
[2021-10-11 12:17] VITALS: BMI 26.2
[2021-11-28 08:27] LABS: Cholesterol 147 mg/dL (140-199); HDL Cholesterol 30 mg/dL (40-60); LDL Cholesterol Calculated 80 mg/dL (<100); Triglycerides 183 mg/dL (35-150)
== END ==
PROVIDERS: PCP Family Medicine; Referring Provider Internal Medicine Cardiovascular Disease; Visit Provider Internal Medicine Cardiovascular Disease
DX: E78.5 Hyperlipidemia, unspecified (principal)
CPT/HCPCS: 36415; 80061

== ENCOUNTER → 2022-04-17 08:44 | Outpatient (CLI) | payer OTHER, SELFPAY ==
[2021-10-11 12:17] VITALS: BMI 26.2
[2022-04-17 10:53] LABS: COVID19 -Nasal RAPID Negative (Negative)
== END ==
PROVIDERS: PCP Family Medicine; Visit Provider Surgery
DX: Z20.822 Contact with and (suspected) exposure to COVID-19 (principal); Z01.812 Encounter for preprocedural laboratory examination
CPT/HCPCS: 87635; C9803

== ENCOUNTER 2022-04-18 10:22 | Day surgery (SDC) | payer OTHER, SELFPAY ==
[2021-10-11 12:17] VITALS: BMI 26.2
[2022-04-13 14:49] VITALS: BMI 25.7
[2022-04-18] VITALS (12 sets, daily range): BP systolic 113–182; BP diastolic 70–92; PULSE 68–90; RESP 12–20; TEMP 35.7–36.9; O2SAT 93–100; BMI 25.7
--- NOTE | 2022-04-18 | PATH_ITS ---
[facility] Accession Number: [id number] . 01 Material submitted: . gallbladder - GALLBLADDER AND CONTENTS . 01 Diagnosis: Gallbladder with Contents, Cholecystectomy: Mild chronic cholecystitis and cholesterolosis. Negative for dysplasia and malignancy. MRV 04/24/2022 1332 Local . 01 Electronically signed: . Kathleen Bernardo MD, Pathologist NPI- [id number] . 01 Gross description: . The specimen is received in formalin labeled with the patient's name, , and gallbladder and contents, and consists of a disrupted gallbladder measuring 6.7 x 3.2 x 2.7 cm with yellow smooth serosa and rough and unremarkable hepatic surface. The cystic duct is received closed with a clamp, is inked blue, and no pericystic lymph node is identified. Opening the specimen reveals the lumen to contain a small amount of dark green mucoid bile with no calculi identified in the lumen or the container. The mucosa is dark green and velvety with multiple pinpoint yellow areas consistent with cholesterol deposits. No polyps or lesions are identified, and the dean average 0.3 cm thick. Lease Examiner sections to include the cystic duct margin and full-thickness sections are submitted in cassette A1. ([id number]) /MRV 04/20/2022 1950 Local . 01 Pathologist provided ICD-10: K81.1 . 01 CPT . 107079 Specimen Comment: A courtesy copy of this report has been sent to [phone] Performed at: 01 [facility] [address] [place] [address] [address] [facility], [place], [place] [id number] MD Luis Monge MD Phone: [phone]
--- NOTE | 2022-04-18 11:44 | PM.HP.1 ---
History of Present Illness History of Present Illness Date Patient Seen: 04/18/22 Time Patient Seen: 11:44 Chief complaint: [facility] [place]ative: Mansoor is here for his laparoscopic cholecystectomy. Please see the original office note from August and the subsequent follow-up note from February for details. Patient History Medical History (Updated 04/13/22 @ 14:57 by Mariangel Michael RN) Arthritis Benign prostatic hyperplasia (~2014) CAD (coronary artery disease) Chicken pox Cholecystitis Chronic left hip pain COPD (chronic obstructive pulmonary disease) (~2017) Diabetes mellitus Enlarged prostate GERD (gastroesophageal reflux disease) Osteoarthritis (~2014) Unilateral primary osteoarthritis, left hip Surgical History (Updated 04/13/22 @ 14:51 by Mariangel Michael RN) Anesthesia History of tonsillectomy (~1964) History of total left hip replacement (10/11/21) History of vasectomy (~1989) Family & Social History Family History Father History of heart disease Hyperlipidemia Hypertension Mother Mental health problem Brother History of heart disease Hyperlipidemia Hypertension Social History: household members spouse Tobacco & Substance use: Tobacco type cigarettes Smoking Status Current every day smoker alcohol intake never alcohol intake frequency holiday/special occasion Substance Use Type does not use Meds Home Medications and Allergies Home Medications Medication Instructions Recorded Confirmed Type simvastatin 10 mg tablet 10 mg PO DAILY #90 tabs 07/15/21 04/18/22 Rx tiotropium bromide 1.25 2 puff inhalation DAILY #4 grams 10/03/21 04/18/22 Rx mcg/actuation mist for inhalation (Spiriva Respimat) acetaminophen 325 mg tablet 650 mg PO TID #120 tabs 10/12/21 04/18/22 Rx aspirin 81 mg tablet,delayed 81 mg PO BID #90 tabs 10/12/21 04/18/22 Rx release docusate sodium 100 mg capsule 100 mg PO BID PRN constipation #60 10/12/21 04/18/22 Rx caps ibuprofen 400 mg tablet 400 mg PO Q4HR #120 tabs 10/12/21 04/18/22 Rx omeprazole 40 mg capsule,delayed 40 mg PO DAILY #90 caps 12/29/21 04/18/22 Rx release tamsulosin 0.4 mg capsule 0.8 mg PO DAILY #180 caps 01/30/22 04/18/22 Rx semaglutide 1 mg/dose (2 mg/1.5 1 mg (0.75 mL) SUBCUT QWEEK #3 mL 03/27/22 04/18/22 Rx mL) subcutaneous pen injector Allergies Allergy/AdvReac Type Severity Reaction Status Date / Time azithromycin Allergy Intermediate GI issues Verified 04/18/22 10:41 erythromycin base Allergy Intermediate GI issues Verified 04/18/22 10:41 Penicillins Allergy Mild Rash Verified 04/18/22 10:41 Exam Vital Signs (past 8 hours): - 04/18/22 10:47 Temperature 97.7 F Pulse Rate 84 Respiratory Rate 16 Blood Pressure 113/71 Pulse Oximetry 100 Oxygen Delivery Method Room Air Oxygen Delivery Method Room Air Const General: healthy appearing Resp Effort & Inspection: normal respiratory effort Assessment & Plan Assessment and plan (1) Biliary dyskinesia: Status: Acute Plan We will proceed with a laparoscopic cholecystectomy for biliary dyskinesia. He understands the risks and benefits and wishes to proceed. Time Spent With Patient Critical Care time: I spent a total of [] minutes of critical care time on this patient's care today; this time is exclusive of procedural time.
[2022-04-18] MEDS: CEFAZOLIN 2 GM/100 ML PREMIX 100 ML IV (12:33)
--- NOTE | 2022-04-18 12:39 | SUR.OPER ---
Supine on padded OR bed, head on pillow, arms secured on padded arm boards at <90 degrees abduction, legs uncrossed, foot board at end of bed, safety belt at thigh, tape over blanket over lower legs.
[2022-04-18] MEDS: BUPIVACAINE 0.5% W/ EPI (PF) 30 ML VIAL INJ (12:52)
[2022-04-18] MEDS: LIDOCAINE 1% 20 ML INJ (12:53)
--- NOTE | 2022-04-18 13:38 | PM.OP.1 ---
Operative Date/Time/Diagnoses Date of procedure: 04/18/22 Time of procedure: 13:38 Pre-op diagnosis: Biliary dyskinesia Post-op diagnosis: same Procedure & Clinicians Procedure: Laparoscopic cholecystectomy Same procedure as scheduled: Yes Surgeon: Juan Green Anesthesia Type: General Operative Notes Procedure in detail: The patient was given preoperative antibiotic. The patient was brought to the operating room, placed on the table in the supine position. General endotracheal anesthesia was induced. The abdomen was prepped and draped. A time-out was performed. We made a 1 cm infraumbilical incision. We dissected down to the base of the umbilical stalk using cautery. We grasped the umbilical stalk with a Debo clamp to elevate the abdominal wall. We scored the fascia in the midline with cautery 1 cm. We pierced the peritoneum with a Peon clamp. The Joss port was placed and the abdomen was insufflated to 15 mmHg. A 5 mm 30 degree laparoscopic was inserted. There was no evidence of any injury from the entry. Next, we placed 5 mm ports in the subxiphoid position and right upper quadrant at the midclavicular line and anterior axillary line. Patient was then positioned in reverse Trendelenburg and the table was tilted to the left. The gallbladder was grasped at the dome and retracted cephalad. There was mesenteric fat adherent to the gallbladder. We dissected the fat from the gallbladder serosa. The gallbladder wall was rather thin and friable and did tear in a few different places spilling some dark green bile. No stones were seen. We then dissected the cystic structures with a combination of hook cautery and blunt dissection. We obtained a critical view. We placed clips on the cystic duct and artery and divided the cystic duct and artery sharply between the clips. The gallbladder was then dissected off the liver and placed in a specimen retrieval bag. We irrigated the right upper quadrant with 3 L of saline until all the aspirate returned clear. We then removed the 5 mm ports under direct vision we removed the Joss port. We then injected some local into the fascia and closed the fascia with 2 interrupted 0 Vicryl sutures. The skin incisions were closed with 4-0 Monocryl and Steri-Strips were applied. Band-Aids were applied over the Steri-Strips. EBL: 30 mL Specimen: Gallbladder Post-operative Condition: stable Disposition: PACU
[2022-04-18] MEDS: LABETALOL 20 MG/4 ML SYRINGE 5 MG IV (13:54)
[2022-04-18] MEDS: OXYCODONE/ACETAMINOPHEN 5/325 TABLET 1 TAB PO (13:59)
--- NOTE | 2022-04-18 14:26 | SUR.PHASEI ---
Patient noted to have systolic in the 180's in PACU. Dr. Hood notified and gave orders for labetalol to get systolic less than 170. 5mg labetalol given per order. Blood pressure came down to the 150's systolic and remained consistent. Dr. Hood stated patient may discharge home if he was less than 170 systolic. Also stated pain is 6/10; medicated with percocet per order. Patient taken over to phase 2 and report given to receiving RN. Blood pressure now 140's systolic in phase 2.
[2022-04-18] MEDS: LACTATED RINGERS 1,000 ML 120 ML IV (14:57)
== END 2022-04-18 15:00 | disposition home or self-care (01) ==
PROVIDERS: PCP Family Medicine; Referring Provider Surgery; Visit Provider Surgery
PROC: 0FT44ZZ Resection of Gallbladder, Percutaneous Endoscopic Approach (ICD-10-PCS; CPT 47562; principal; 2022-04-18 11:30)
DX: K81.1 Chronic cholecystitis (principal); K82.8 Other specified diseases of gallbladder; F17.210 Nicotine dependence, cigarettes, uncomplicated; E11.9 Type 2 diabetes mellitus without complications; Z79.84 Long term (current) use of oral hypoglycemic drugs; J44.9 Chronic obstructive pulmonary disease, unspecified; K21.9 Gastro-esophageal reflux disease without esophagitis
CPT/HCPCS: 47562; 82962; J0690; J1885; J2250; J2405; J2704; J3010

== ENCOUNTER → 2022-12-11 09:47 | Outpatient (CLI) | payer OTHER, SELFPAY ==
[2021-10-11 12:17] VITALS: BMI 26.2
--- NOTE | 2022-12-11 09:48 | DI.CT.S_ITS ---
PROCEDURE: CT CHEST WO CON INDICATIONS: Current 1 pack a day smoker TECHNIQUE: Noncontrast 2.0-2.5 mm thick sections acquired from the pulmonary apices to the posterior costophrenic angles. 7 mm thick axial MIP, and 5 mm coronal and sagittal reformats were then acquired. A low radiation dose technique was utilized. COMPARISON: None. FINDINGS: Image quality: Diagnostic, given the low radiation dose technique. Lungs and pleura: No suspicious lung nodules. There is moderate emphysema. Subpleural septal thickening and mild pulmonary fibrosis in upper lobes bilaterally. Mediastinum: Heart size is normal. There is severe coronary artery atherosclerosis. No pericardial effusion. No mediastinal adenopathy by size criteria. Thoracic aorta and central pulmonary arteries are normal in size. Esophagus is normal in caliber. No hiatal hernia. Bones and chest wall: No suspicious bony lesions. No vertebral body compression fractures. No axillary or supraclavicular adenopathy by size criteria. Thyroid gland is unremarkable. Abdomen: Visualized upper abdomen solid organs and bowel loops appear normal in the absence of contrast. IMPRESSION: 1. No suspicious lung nodules. LUNG-RADS 1; recommend annual screening lung CT in 12 months. 2. Severe coronary artery atherosclerosis. 3. Moderate emphysema. 4. Subpleural septal thickening and mild pulmonary fibrosis in upper lobes bilaterally. Dictated by: Alicja Keita M.D. on 12/11/2022 at 12:30 Approved by: Alicja Keita M.D. on 12/11/2022 at 12:39
== END ==
PROVIDERS: PCP Family Medicine; Referring Provider Family Medicine; Visit Provider Family Medicine
DX: I25.10 Atherosclerotic heart disease of native coronary artery without angina pectoris (principal); J43.9 Emphysema, unspecified
CPT/HCPCS: 71250

== ENCOUNTER → 2023-08-23 09:51 | Outpatient (CLI) | payer OTHER, SELFPAY ==
[2021-10-11 12:17] VITALS: BMI 26.2
== END ==
PROVIDERS: PCP Family Medicine; Referring Provider Family Medicine; Visit Provider Family Medicine
DX: R55 Syncope and collapse (principal); I48.91 Unspecified atrial fibrillation
CPT/HCPCS: 93242

== ENCOUNTER → 2023-11-02 10:06 | Outpatient (CLI) | payer OTHER, SELFPAY ==
[2021-10-11 12:17] VITALS: BMI 26.2
--- NOTE | 2023-11-02 10:10 | DI.RAD.S_ITS ---
PROCEDURE: XR LUMBAR SPINE 2-3V INDICATIONS: Other specified arthritis, unspecified site TECHNIQUE: 3 views of the lumbar spine were acquired. COMPARISON: [facility], CT, CT CHEST WITHOUT CONTRAST, 08/15/2023, 5:44. FINDINGS: Bones: 5 [id number] vertebrae are present. Mild dextroconvex curvature. Mild compression deformity at L1 does not appear significantly changed when compared to the CT from 08/15/2023. No acute vertebral body compression fractures. No suspicious bony lesions. Multilevel disc space narrowing degenerative endplate changes are seen that are most prominent at the L5-S1 level. Multilevel facet hypertrophy. Soft tissues: Overlying bowel gas pattern is normal. No suspicious soft tissue calcifications. Cholecystectomy clips are present. A left hip arthroplasty is noted. IMPRESSION: 1. Moderate multilevel spondylosis. Mild dextroconvex curvature. 2. Chronic mild L1 compression fracture. No acute osseous abnormality. Approved by: Juan J Boothe M.D. on 11/02/2023 at 20:56
--- NOTE | 2023-11-02 10:10 | DI.RAD.S_ITS ---
PROCEDURE: XR CERVICAL SPINE 2V OR 3V INDICATIONS: Other specified arthritis, unspecified site TECHNIQUE: Three views of the cervical spine were acquired. COMPARISON: None. FINDINGS: Bones: No acute fractures or dislocations to the T1 level. The lateral masses of C1 appear intact on the odontoid view. No suspicious bony lesions. Mild disc space narrowing degenerative endplate changes at the C5-6 and C6-7 levels. Mild multilevel uncovertebral joint and facet hypertrophy. Soft tissues: No prevertebral soft tissue swelling. IMPRESSION: No acute displaced fracture or traumatic subluxation. Mild multilevel spondylosis. Approved by: Juan J Boothe M.D. on 11/02/2023 at 20:52
--- NOTE | 2023-11-02 10:10 | DI.RAD.S_ITS ---
PROCEDURE: XR THORACIC SPINE 2V INDICATIONS: Other specified arthritis, unspecified site TECHNIQUE: 3 views of the thoracic spine were acquired. COMPARISON: None. FINDINGS: Bones: No acute fractures or dislocations. No suspicious bony lesions. 12 pairs of ribs are noted, and appear intact where visualized. Mild degenerative endplate changes. Soft tissues: No paravertebral stripe thickening. IMPRESSION: No acute bony abnormality. Mild spondylosis. Approved by: Juan J Boothe M.D. on 11/02/2023 at 20:54
== END ==
LOC: RAD 10:08
PROVIDERS: PCP Family Medicine; Referring Provider Chiropractor; Visit Provider Chiropractor
DX: M47.812 Spondylosis without myelopathy or radiculopathy, cervical region (principal); M47.814 Spondylosis without myelopathy or radiculopathy, thoracic region; M47.816 Spondylosis without myelopathy or radiculopathy, lumbar region; M47.817 Spondylosis without myelopathy or radiculopathy, lumbosacral region; M48.56XA Collapsed vertebra, not elsewhere classified, lumbar region, initial encounter for fracture
CPT/HCPCS: 72040; 72070; 72100

== ENCOUNTER → 2023-12-20 13:42 | Outpatient (CLI) | payer OTHER, SELFPAY ==
[2021-10-11 12:17] VITALS: BMI 26.2
--- NOTE | 2024-01-10 14:36 | DIAB.MNT ---
Initial Diabetes Medical Nutrition Therapy Assessment Name: Mansoor Contreras Date: 12/20/23 Time: 2-230p Dx: Type II Diabetes Mansoor presents for initial Dm visit. PMH of DM x 20 years with paternal FH of DM. Reports [place] in 07/2023. Currently in cardiac rehab 3x per week. States yard hand rec'd higher fiber pasta and reduced red meat. Endorses little neuropathy in feet that comes and goes. Diet Recall: 530a: coffee, honey, cream 6a: egg 8a; yogurt with granola bar and coffee 12p: left overs OR sandwich with pb crackers +/- veggies 6p: protein x 6oz with veggies and coffee +/- potatoes x 1-1.5c OR white rice x 1c water 32oz sf lemon [place] mone 16oz Anthropometrics: Ht: 6'1 Wt: 206# 09/2023 Physical Activity: Cardio rehab x 3 days per week, golf once per month, prior to [place] was going to gym. Self-Monitoring Blood Glucose: Uses FSL3. No sensor currently due to issues with sensor lasting fewer days, giving weird messages, and not sticking. FBG reported <150mg/dl pc Breakfast up to 180, occasional 225mg/dl Diabetes Medications: 1mg Semaglutide Pertinent Labs: HgA1c: 6.6% 08/2021 6.6% 09/2023 Past Medical History: (Last Reviewed 09/06/23 @ 15:00 by Uvaldo Munoz MD) Actinic keratoses Arthritis Benign prostatic hyperplasia (~2014) BPH w urinary obs/LUTS CAD (coronary artery disease) Chicken pox Cholecystitis Chronic left hip pain COPD (chronic obstructive pulmonary disease) (~2017) Diabetes mellitus Enlarged prostate GERD (gastroesophageal reflux disease) Hearing loss Left-sided tinnitus Macrocytosis without anemia Osteoarthritis (~2014) Unilateral primary osteoarthritis, left hip Nutrition Rx: Plate Method Nutrition Diagnosis: - Food and nutrition related knowledge deficit r/t needing refresher on MNT aeb pt report Intervention: This participant was very receptive. Provided appropriate educational handouts. Discussed the following topics: Completed intake assessment. Discussed barriers to care. Pathophysiology of T2DM HgA1c, its correlation to blood glucose numbers, and rationale for goal Importance of self-monitoring, how often, and when to check. Suggested checking at different times to evaluate meals Plate Method, impact of macronutrients on blood sugar, meal timing, pairing macronutrients and spreading out carbohydrates for better blood glucose management Recommended servings for carbohydrates at meals and snacks Heart health nutrition Brainstormed appropriate meal plan based on food preferences Role of physical activity and following provider guidelines for safety Created SMART goals for patient self-care and success. Goals: Add protein to 8am meal Add veggies at 12p meal consistently Follow-up: LIANA SANTA follow-up in 2-3 weeks Fiona Edwards RDN, KIET Certified Diabetes Care and Gas Operations Superintendent P: [phone] Thank you for this referral
== END ==
PROVIDERS: PCP Family Medicine; Referring Provider Family Medicine
DX: E11.9 Type 2 diabetes mellitus without complications (principal); Z79.84 Long term (current) use of oral hypoglycemic drugs; Z71.3 Dietary counseling and surveillance
CPT/HCPCS: 97802

== ENCOUNTER → 2024-01-03 11:31 | Outpatient (CLI) | payer OTHER, SELFPAY ==
[2021-10-11 12:17] VITALS: BMI 26.2
[2024-01-03 12:22] LABS: Add Manual Diff / Slide Review NO; Basophils Absolute Auto 100 /uL (0-100); Basophils Percent Auto 0.8 % (0-2); Eosinophils Absolute Auto 200 /uL (0-450); Eosinophils Percent Auto 2.1 % (2-4); Hematocrit 41.8 % (41-53); Hemoglobin 14.3 g/dL (13.5-17.5); Lymphocytes Absolute Auto 1900 /uL (1100-4500); Lymphocytes Percent Auto 25.8 % (25-40); Mean Corpuscular HGB Conc 34.2 % (30-36); Mean Corpuscular Hemoglobin 33.1 PG (26-34); Mean Corpuscular Volume 96.9 fL (80-100); Monocytes Absolute Auto 800 /uL (0-900); Monocytes Percent Auto 10.7 % (3-14); Neutrophils Absolute Auto 4400 /uL (1500-7000); Neutrophils Percent Auto 60.6 % (50-75); Platelet Count 217 X10^3/uL (150-400); Red Blood Cell Count 4.31 X10^6/uL (4.5-5.9); Red Cell Distribution Width 12.9 % (11.6-14.8); White Blood Cell Count 7.3 X10^3/uL (4.5-11.0)
[2024-01-03 12:52] LABS: Alanine Aminotransferase 28 IU/L (<50); Albumin 4.8 g/dL (3.5-5.0); Albumin Globulin Ratio 1.4 (1.0-2.8); Alkaline Phosphatase 67 U/L (38-126); Aspartate Aminotransferase 26 IU/L (17-59); BUN Creatinine Ratio 17.9 (6-22); Bilirubin Total 0.6 mg/dL (0.2-1.3); Blood Urea Nitrogen 22 mg/dL (9-20); Calcium 9.4 mg/dL (8.4-10.2); Carbon Dioxide 24 mmol/L (22-32); Chloride 106 mmol/L (98-107); Cholesterol 179 mg/dL (140-199); Estimated Glomerular Filt Rate > 60 mL/min (>60); Globulin 3.5 g/dL (1.7-4.1); Glucose 112 mg/dL (80-110); HDL Cholesterol 34 mg/dL (40-60); HEMOLYSIS < 15 (0-50); Potassium 5.1 mmol/L (3.4-5.1); Sodium 138 mmol/L (137-145); Total Protein 8.3 g/dL (6.3-8.2); Triglycerides 462 mg/dL (35-150)
[2024-01-03 13:19] LABS: Prostate Specific Antigen Scrn 3.43 ng/mL (0.1-4.0)
[2024-01-03 13:22] LABS: TSH w/ Reflex to FT4 1.21 uIU/mL (0.47-4.68)
[2024-01-03 13:47] LABS: Hemoglobin A1C% w Est Avg Glu 6.9 % (4.0-6.0)
[2024-01-03 14:34] LABS: Creatinine Urine Random 37.65 mg/dL
[2024-01-03 14:42] LABS: Microalbumin Urine Random 0.6 mg/dL (0-1.6)
[2024-01-03 15:51] LABS: Hep C Virus Ab w/Reflex Quant NEGATIVE s/c (NEGATIVE)
[2024-01-05 06:10] LABS: Apolipoprotein B 93 mg/dL (<90)
== END ==
PROVIDERS: PCP Family Medicine; Referring Provider Family Medicine; Visit Provider Family Medicine
DX: N40.1 Benign prostatic hyperplasia with lower urinary tract symptoms (principal); N13.8 Other obstructive and reflux uropathy; D75.89 Other specified diseases of blood and blood-forming organs; I25.10 Atherosclerotic heart disease of native coronary artery without angina pectoris; J44.9 Chronic obstructive pulmonary disease, unspecified; N40.0 Benign prostatic hyperplasia without lower urinary tract symptoms; E11.9 Type 2 diabetes mellitus without complications; Z12.5 Encounter for screening for malignant neoplasm of prostate
CPT/HCPCS: 36415; 80053; 80061; 82043; 82172; 82570; 83036; 84443; 85025; 86803; G0103

== ENCOUNTER → 2024-01-21 06:23 | Outpatient (CLI) | payer OTHER, SELFPAY ==
[2021-10-11 12:17] VITALS: BMI 26.2
--- NOTE | 2024-01-21 06:26 | DI.US.S_ITS ---
PROCEDURE: US ABD AORTA ANEURYSM SCREEN INDICATIONS: HISTORY SMOKING TECHNIQUE: Real time scanning was performed of the aorta and iliac arteries, with image documentation. COMPARISON: None. FINDINGS: Aorta: Proximal aortic diameter measures 2.4 cm. Mid-aorta measures 2 cm. There is a fusiform aneurysm seen involving the distal abdominal aorta, measuring 3.9 cm AP, with a width of 3.8 cm and a length of 8.2 cm. Iliac arteries: Right common iliac artery measures 1.5 cm. Left common iliac artery measures 1.5 cm. IMPRESSION: Distal abdominal aortic aneurysm, measuring 3.9 cm AP. By published criteria, ultrasound follow-up in 3 years is recommended. Dictated by: Rohit Perez M.D. on 01/21/2024 at 11:06 Approved by: Rohit Perez M.D. on 01/21/2024 at 11:07
--- NOTE | 2024-01-21 07:00 | DI.CT.S_ITS ---
PROCEDURE: CT LUNG LOW DOSE SCREENING INDICATIONS: smoking hx TECHNIQUE: Noncontrast 2.0-2.5 mm thick sections acquired from the pulmonary apices to the posterior costophrenic angles. 7 mm thick axial MIP, and 5 mm coronal and sagittal reformats were then acquired. For radiation dose reduction, the following was used: automated exposure control, adjustment of mA and/or kV according to patient size. COMPARISON: [facility], CT, CT CHEST WITHOUT CONTRAST, 08/15/2023, 5:44. FINDINGS: Image quality: Diagnostic. Lower Neck: No enlarged lymph nodes. Thyroid: No thyroid nodules which require sonographic follow up, per consensus guidelines. Axillae: No enlarged lymph nodes. Chest Wall: Unremarkable. Bones: Interior changes noted thoracic spine. Lungs and Pleura: Centrilobular emphysematous changes are present per no consolidation. No mass lesions. No pneumothorax or pleural effusions. Heart: Heart size is normal. No pericardial effusion. Calcifications are present in the coronary arteries. Thoracic Vessels: Ascending aorta is ectatic. The pulmonary vessels appear unremarkable. Mediastinum and [place]: No enlarged lymph nodes. Esophagus: No wall thickening. No hiatal hernia. Upper Abdomen: Prior cholecystectomy. No acute abnormality. IMPRESSION: No suspicious pulmonary nodules. Centrilobular emphysematous changes. LUNG-RADS: 2. Benign. Recommend continued annual screening, if eligible. Clinically Significant Non-pulmonary Findings: Coronary artery calcifications. Dictated by: Orlin Spears M.D. on 01/22/2024 at 12:43 Approved by: Orlin Spears M.D. on 01/22/2024 at 12:55
== END ==
LOC: CT 06:23
PROVIDERS: PCP Family Medicine; Referring Provider Family Medicine; Visit Provider Family Medicine
DX: I71.40 Abdominal aortic aneurysm, without rupture, unspecified (principal); Z12.2 Encounter for screening for malignant neoplasm of respiratory organs; Z87.891 Personal history of nicotine dependence; I25.10 Atherosclerotic heart disease of native coronary artery without angina pectoris; J44.9 Chronic obstructive pulmonary disease, unspecified; E11.9 Type 2 diabetes mellitus without complications; N40.0 Benign prostatic hyperplasia without lower urinary tract symptoms
CPT/HCPCS: 71271; 76706

== ENCOUNTER → 2024-02-15 12:45 | Outpatient (CLI) | payer OTHER, SELFPAY ==
[2021-10-11 12:17] VITALS: BMI 26.2
--- NOTE | 2024-02-15 14:34 | DIAB.MNTFU ---
Follow-up Diabetes Medical Nutrition Therapy Assessment Name: Mansoor Contreras Date: 02/15/24 Time: 1-140p Dx: Type II Diabetes Mansoor presents for follow-up Dm visit. PMH of DM x 20 years with paternal FH of DM. Reports [place] in 07/2023. Though radiator core tester rec'd ww pasta, he reports not enjoying the texture. Is eating more brown rice, ok with ww bread, enjoys avocados, nuts for fiber foods. In review of CGM data, he is having a fairly significant elevations after coffee with honey in the morning. Some days having elevations after each meal. Suspect high CHO and lower protein at some meals/snacks. Likes higher sugar yogurts. Does not like Setswana generally, but would be willing to find one he enjoys. Adding sugar snap peas and carrots at lunch. Recent knee pain, saw Mirella Diez, completed xray at [facility]. Has not heard back, but plans to contact provider. Per scanned reports looks like osteoarthritis. Takes acetaminophen for pain. Encouraged him to contact provider. Diet Recall: 530a: coffee, honey, cream 6a: egg 8a; yogurt with granola bar and coffee (65g CHO) 12p: left overs OR sandwich with pb crackers + veggies 6p: protein x 6oz with veggies and coffee +/- potatoes x 1-1.5c OR white rice x 1c water 32oz sf lemon [place] mone 16oz sometimes a few sips of regular soda Reports his main goal is to make sure DM does not contribute to any other health issues. Anthropometrics: Ht: 6'1 Wt: 206# 09/2023 Physical Activity: Cardio rehab x 3 days per week until recent knee pain. Plans to restart. Golfing less as well due to pain. Self-Monitoring Blood Glucose: Uses FSL3. FBG seem in goal, but postprandial often 180-200s mg/dl. TIR: 0% very high 12% high 88% in range 0% low av mg/dl GMI: 6.9% Diabetes Medications: 1mg Semaglutide Pertinent Labs: HgA1c: 6.6% 08/2021 6.6% 09/2023 6.9% 12/2023 Past Medical History: (Last Reviewed 03/28/24 @ 15:00 by Uvaldo Munoz MD) Actinic keratoses Arthritis Benign prostatic hyperplasia (~2015) BPH w urinary obs/LUTS CAD (coronary artery disease) Chicken pox Cholecystitis Chronic left hip pain COPD (chronic obstructive pulmonary disease) (~2018) Diabetes mellitus Enlarged prostate GERD (gastroesophageal reflux disease) Hearing loss Left-sided tinnitus Macrocytosis without anemia Osteoarthritis (~2015) Unilateral primary osteoarthritis, left hip Nutrition Rx: Plate Method Carbohydrates: 45g at meals and 15-30g at snacks Nutrition Diagnosis: - Food and nutrition related knowledge deficit r/t needing refresher on MNT aeb pt report- in progress - Excessive CHO intake r/t nutrition knowledge deficit aeb diet recall and elevated BG in CGM- new Intervention: This participant was very receptive. Provided appropriate educational handouts. Discussed the following topics: BG trends in CGM and goals Carb portions and recommendations Pairing CHO and protein higher fiber foods for heart health Spreading out carbs Measuring honey Sugar beverages impact on BG Barriers to physical activity Created SMART goals for patient self-care and success. Goals: Add protein to 8am meal- not met Add veggies at 12p meal consistently - met Look for higher protein/lower CHO yogurt you like- new Move granola bar to afternoon - new Measure honey in coffee and track BG trend after- new Follow-up: LIANA SANTA follow-up in 3 months per pt request. Fiona Edwards RDN, KIET Certified Diabetes Care and Academic Support Specialist P: [phone] Thank you for this referral
== END ==
PROVIDERS: PCP Family Medicine; Referring Provider Family Medicine
DX: E11.9 Type 2 diabetes mellitus without complications (principal); Z79.85 Long-term (current) use of injectable non-insulin antidiabetic drugs; Z71.3 Dietary counseling and surveillance
CPT/HCPCS: 97803

== ENCOUNTER → 2024-08-13 13:37 | Outpatient (CLI) | payer OTHER, SELFPAY ==
[2021-10-11 12:17] VITALS: BMI 26.2
--- NOTE | 2024-09-26 13:14 | DIAB.MNTFU ---
Follow-up Diabetes Medical Nutrition Therapy Assessment Name: Mansoor Contreras Date: 08/13/24 Time: 2-230p Dx: Type II Diabetes Mansoor presents for follow-up Dm visit. PMH of DM x 20 years with paternal FH of DM. Still wearing CGM but states his insurance is not covering this via DME. Reports desire to start walking. Recently completed cardio rehab. [place] in 2023. Spread out his carbs more since last visit. No longer having high CHO snacks in the morning. Cut out cream from coffee. Carb portions seem reasonable, however hydration may be low and physical activity less recently. May be contributing to elevated BG Diet Recall: B: coffee, 1tsp honey, egg sn; yogurt sn: granola bar D: protein (chx or fish or pork) veggies, sometimes with corn or potato sn: nothing or vanilla wafer 32oz or more water Reports his main goal is to make sure DM does not contribute to any other health issues. Anthropometrics: Ht: 6'1 Wt: 207# 01/2024 206# 09/2023 Physical Activity: Cardio rehab x 3 days finished. No program currently. Self-Monitoring Blood Glucose: Uses FSL3. Increased hyperglycemia with 90 day review of device. TIR: 2% very high 29% high 69% in range 0% low av mg/dl GMI: 7.3% Last TIR: 0% very high 12% high 88% in range 0% low av mg/dl GMI: 6.9% Diabetes Medications: 1mg Semaglutide Pertinent Labs: HgA1c: 6.6% 08/2021 6.6% 09/2023 6.9% 12/2023 7.3% 02/2024 Past Medical History: (Last Reviewed 09/06/23 @ 15:00 by Uvaldo Munoz MD) Actinic keratoses Arthritis Benign prostatic hyperplasia (~2014) BPH w urinary obs/LUTS CAD (coronary artery disease) Chicken pox Cholecystitis Chronic left hip pain COPD (chronic obstructive pulmonary disease) (~2017) Diabetes mellitus Enlarged prostate GERD (gastroesophageal reflux disease) Hearing loss Left-sided tinnitus Macrocytosis without anemia Osteoarthritis (~2014) Unilateral primary osteoarthritis, left hip Nutrition Rx: Plate Method Carbohydrates: 45g at meals and 15-30g at snacks Nutrition Diagnosis: - Food and nutrition related knowledge deficit r/t needing refresher on MNT aeb pt report- inmproved - Excessive CHO intake r/t nutrition knowledge deficit aeb diet recall and elevated BG in CGM- improved Intervention: This participant was very receptive. Provided appropriate educational handouts. Discussed the following topics: BG trends in CGM and goals Diet changes he has made Hydration impact on BG Troubleshooting CGM access and coupon Medication management: Ozempic dosing Physical activity Created SMART goals for patient self-care and success. Goals: Look for higher protein/lower CHO yogurt you like- met Move granola bar to afternoon - met Measure honey in coffee and track BG trend after- met Start walks 2-3x per week- new Work on increasing water intake- new Call about CGM coverage- new Follow-up: LIANA SANTA follow-up offered given elevated BG, however Mansoor would like to follow-up prn. Will call or message with f/u needs prn. Fiona Edwards RDN, [facility] Certified Diabetes Care and Consulting Senior Practice Director P: [phone] Thank you for this referral
== END ==
PROVIDERS: PCP Family Medicine; Referring Provider Family Medicine
DX: E11.9 Type 2 diabetes mellitus without complications (principal); Z71.3 Dietary counseling and surveillance; Z83.3 Family history of diabetes mellitus; Z79.85 Long-term (current) use of injectable non-insulin antidiabetic drugs
CPT/HCPCS: 97803

== ENCOUNTER → 2025-01-05 14:21 | Outpatient (CLI) | payer OTHER, SELFPAY ==
[2024-10-30 15:58] VITALS: BMI 26.2
== END ==
PROVIDERS: PCP Family Medicine; Visit Provider Urology
DX: N40.1 Benign prostatic hyperplasia with lower urinary tract symptoms (principal); N13.8 Other obstructive and reflux uropathy
CPT/HCPCS: 87086

== ENCOUNTER → 2025-01-15 14:44 | Outpatient (CLI) | payer OTHER, SELFPAY ==
[2024-10-30 15:58] VITALS: BMI 26.2
== END ==
PROVIDERS: PCP Family Medicine; Visit Provider Urology
DX: N40.1 Benign prostatic hyperplasia with lower urinary tract symptoms (principal); N13.8 Other obstructive and reflux uropathy
CPT/HCPCS: 87086

== ENCOUNTER → 2025-02-10 17:46 | Outpatient (ROUT) | payer OTHER, SELFPAY ==
[2024-10-30 15:58] VITALS: BMI 26.2
== END ==
PROVIDERS: PCP Family Medicine
DX: L03.90 Cellulitis, unspecified (principal)
CPT/HCPCS: 87070; 87075; 87205

== ENCOUNTER → 2025-03-28 07:55 | Outpatient (CLI) | payer OTHER, SELFPAY ==
[2024-10-30 15:58] VITALS: BMI 26.2
[2025-03-28 09:34] LABS: Add Manual Diff / Slide Review NO; Hematocrit 41.7 % (41-53); Hemoglobin 14.3 g/dL (13.5-17.5); Lymphocytes Absolute Auto 2300 /uL (1100-4500); Mean Corpuscular HGB Conc 34.4 % (30-36); Mean Corpuscular Hemoglobin 32.1 PG (26-34); Mean Corpuscular Volume 93.3 fL (80-100); Platelet Count 199 X10^3/uL (150-400)
[2025-03-28 09:44] LABS: Hemoglobin A1C% w Est Avg Glu 7.8 % (4.0-6.0)
[2025-03-28 10:25] LABS: TSH w/ Reflex to FT4 1.19 uIU/mL (0.47-4.68)
[2025-03-28 10:32] LABS: Alanine Aminotransferase 23 IU/L (<50); Albumin 4.7 g/dL (3.5-5.0); Albumin Globulin Ratio 1.4 (1.0-2.8); Alkaline Phosphatase 70 U/L (38-126); Blood Urea Nitrogen 20 mg/dL (9-20); Calcium 9.8 mg/dL (8.4-10.2); Carbon Dioxide 25 mmol/L (22-32); Chloride 101 mmol/L (98-107); Cholesterol 165 mg/dL (140-199); Estimated Glomerular Filt Rate > 60 mL/min (>60); Globulin 3.4 g/dL (1.7-4.1); Glucose 171 mg/dL (70-99); HDL Cholesterol 32 mg/dL (40-60); HEMOLYSIS < 15 (0-50); Potassium 5.2 mmol/L (3.4-5.1); Sodium 137 mmol/L (137-145); Total Protein 8.1 g/dL (6.3-8.2); Triglycerides 457 mg/dL (35-150)
== END ==
PROVIDERS: PCP Family Medicine; Referring Provider Family Medicine; Visit Provider Family Medicine
DX: G62.9 Polyneuropathy, unspecified (principal); E11.9 Type 2 diabetes mellitus without complications; M47.816 Spondylosis without myelopathy or radiculopathy, lumbar region; I25.10 Atherosclerotic heart disease of native coronary artery without angina pectoris
CPT/HCPCS: 36415; 80053; 80061; 83036; 84443; 85025